=== PATIENT | female | born 1990 | race Caucasian/White ===

== ENCOUNTER 2018-11-13 13:48 | Emergency (ER) | payer SELFPAY ==
[~2018-11-13] VITALS: Ht 162.6 cm; Wt 49.9 kg
[2018-11-13 14:01] VITALS: BP 122/67; Ht 162.6 cm; Wt 49.9 kg
== END 2018-11-13 15:53 | disposition home or self-care (01) ==
LOC: ED 13:48
DX: R10.30 Lower abdominal pain, unspecified (principal); R11.0 Nausea; R19.7 Diarrhea, unspecified; R42 Dizziness and giddiness